=== PATIENT | male | born 1995 | race Caucasian/White ===

== ENCOUNTER 2024-08-05 14:12 | Emergency (ER) | payer BC, SELFPAY ==
[2024-08-05 14:14] VITALS: BP 123/78
[2024-08-05 14:25] LABS: Glucose - Point of Care 269 mg/dl (70-99)
[2024-08-05 15:18] VITALS: BMI 31.4
[2024-08-05 15:20] VITALS: BP 148/85
--- NOTE | 2024-08-05 15:21 | ED.GENMED ---
History of Present Illness
General
Chief Complaint: Abdominal Symptoms
Source: patient
Exam Limitations: none
Time Seen by Provider: 08/05/24 14:47
Nursing documentation reviewed up to this point in time: agreed with
History of Present Illness
History of Present Illness:
Patient is a 28-year-old male who presents to the ER for evaluation of nausea vomiting diarrhea. Patient saw the middle the night with nausea vomiting diarrhea he reports he has vomited more than 20 times and presents to the ER still vomiting
though diarrhea has resolved he denies any associate abdominal pain. He feels that he has a stomach virus. He is concerned because he is a type I diabetic and typically his sugars will elevate when he gets viral syndrome.
He denies any other sick contacts at home. Denies any recent fevers.
Review of Systems
Review of Systems
Allergies reviewed?: Yes
All Other Systems: ROS reviewed and negative except as documented in HPI and ROS
Constitutional: Reports no symptoms
Respiratory: Reports no symptoms
Cardiac: Reports no symptoms
ABD/GI: Reports nausea, vomiting and diarrhea; Denies abdominal pain
: Reports no symptoms
Musculoskeletal: Reports no symptoms
Skin: Reports no symptoms
Neurological: Reports no symptoms
Psychiatric: Reports no symptoms
Phy Exam
General Physical Exam
General Presentation: no apparent distress
Course
Orders/Labs/Results
Orders:
Orders
08/05/24 15:06
IV Insert/Care/Rem.- Treatment PRN
0.9% Sodium Chloride 1000 ml [Nss] 1,000 ml IV BOLUS
Ondansetron Injectable [Zofran] 4 mg IV NOW STA
08/05/24 15:19
Complete Blood Count/With Diff Urgent
Comprehensive Metabolic Panel Urgent
Lipase Urgent
08/05/24 15:20
Famotidine [Pepcid] 20 mg IV NOW STA
08/05/24 15:21
Ondansetron Injectable [Zofran] 4 mg IV NOW STA
08/05/24 15:22
0.9% Sodium Chloride 1000 ml [Nss] 1,000 ml IV BOLUS
08/05/24 17:12
Urinalysis Reflex To Culture Urgent
Date Specimen was Collected: 08/05/24
Time Specimen was Collected: 17:03
Abnormal Lab Results
08/05/24 08/05/24 08/05/24
14:24 15:19 16:25
WBC 14.8 H 10^3/uL
(4.8-10.8)
Abs Immat Gran (auto) 0.1 H 10^3/uL
(0-0.05)
Absolute Neuts (auto) 13.6 H 10^3/uL
(1.4-6.5)
Absolute Lymphs (auto) 0.7 L 10^3/uL
(1.2-3.4)
Neutrophils % 92.1 H %
(42.2-75.2)
Lymphocytes % 4.6 L %
(20.5-51.1)
BUN 22 H mg/dl
(9-20)
Glucose 297 H mg/dl
(70-99)
Total Protein 8.3 H g/dl
(6.3-8.2)
Albumin 5.4 H g/dl
(3.5-5.0)
Lipase 20 L U/L
(23-300)
Urine Ketones
Urine Glucose
POC Glucose 269 H mg/dl 224 H mg/dl
(70-99) (70-99)
08/05/24
17:12
WBC
Abs Immat Gran (auto)
Absolute Neuts (auto)
Absolute Lymphs (auto)
Neutrophils %
Lymphocytes %
BUN
Glucose
Total Protein
Albumin
Lipase
Urine Ketones 3+ A
(Negative)
Urine Glucose 3+ A
(Negative)
POC Glucose
08/05/24 15:19
08/05/24 15:19
Vital Signs
Initial and Last Documented VS:
Initial Vital Signs
Temp Pulse Resp BP Pulse Ox
98.2 F 78 18 123/78 97
08/05/24 14:14 08/05/24 14:14 08/05/24 14:14 08/05/24 14:14 08/05/24 14:14
Last Documented Vital Signs
Temp Pulse Resp BP Pulse Ox
98.2 F 50 18 157/88 97
08/05/24 14:14 08/05/24 17:55 08/05/24 17:55 08/05/24 17:03 08/05/24 17:55
MDM/Problems Addressed
Differential Diagnosis Includes:
Not limited to hyperglycemia viral syndrome dehydration viral gastroenteritis
MDM/Problems Addressed:
symptoms are consistent with gastroenteritis. Patient started nausea vomiting diarrhea 3 AM. He is a diabetic and therefore was concerned about his sugars being elevated. Patient reports diarrhea stopped however vomiting persisted. Patient
presents to the ER vomiting. IV line was inserted patient was given Zofran and fluids monitor here feeling much better. Patient was able to tolerate fluids here in the ER no abd pain. no fever. wbc mildly elevated. Patient's creatinine is normal
neuro sodium potassium and normal bicarb glucose was elevated however improving after fluids. Patient feels well after go home will DC with Zofran as needed
*Critical Care Note
Total Time (30-74mins, 75-104mins- exclusive of procedures): Not Applicable
ED Attending Note
-
Portions of this chart may have been created with voice recognition software.� Occasional wrong word or��sound alike� substitutions may have occurred due to the inherent limitations of voice recognition software.
Discharge Plan
Departure
Patient Disposition: Home (Routine Discharge)
Date of Disposition: 08/05/24
Time of Disposition: 17:41
Patient with high blood pressure during this ER visit?: Yes
Condition: Fair
Covid-19: Not Applicable
Discharge Problem:
Gastroenteritis
Instructions: Diarrhea in teens and adults, Nausea and Vomiting, Adult (DC)
Prescriptions:
New
ondansetron 4 mg tablet,disintegrating
4 mg PO Q8H PRN (Reason: nausea and vomiting) Qty: 7 0RF
Referrals:
NONE,* [Family Provider] -
Activity Restrictions/Additional Instructions:
As discussed a prescription for Zofran was sent to your pharmacy take as directed only as needed. Clear fluids for the next 24 hours followed by bland solid foods. Closely follow up with your family doctor in the next several days for
reevaluation. Closely monitor your sugars. Return if any worsening of symptoms
Interventions
Interventions:
*Risk Screen - Suicide Last Done: 08/05/24 14:14
*General Assessment Last Done: 08/05/24 14:14
*Neglect/Abuse Screening Last Done: 08/05/24 14:14
*Nursing Disposition Last Done: 08/05/24 18:01
ZT-Etwghu-Qbrfmhijtk Assessment Last Done: 08/05/24 15:19
Discharge Date and Time
Discharge Date/Time: 08/05/24 18:03
Print Language: PUERTO RICAN
[2024-08-05] MEDS: NSS 1000 IV ×2 (15:23→16:19)
[2024-08-05] MEDS: ZOFRAN 4 MG IV ×2 (15:24→16:22)
[2024-08-05 15:29] LABS: % Basophils 0.1 % (0-2); % Immature Granulocytes 0.3 % (0-0.5); % Lymphocytes 4.6 % (20.5-51.1); % Monocytes 2.9 % (1.7-9.3); % Neutrophils 92.1 % (42.2-75.2); Absolute Immature Granulocytes 0.1 10^3/uL (0-0.05); Absolute Lymphocytes 0.7 10^3/uL (1.2-3.4); Absolute Monocytes 0.4 10^3/uL (0.1-0.6); Absolute Neutrophils 13.6 10^3/uL (1.4-6.5); Hematocrit 46.6 % (39.0-52.0); Hemoglobin 15.6 g/dL (13.0-18.0); Mean Corp Hgb Conc. 33.5 g/dL (33.0-37.0); Mean Corpuscular Hgb 30.2 pg (27.0-31.0); Mean Corpuscular Volume 90.1 fL (80.0-94.0); Mean Platelet Volume 9.6 fL (7.4-10.4); Nucleated Red Blood Cells % 0 % (-); Platelet Count 321 10^3/uL (130-400); Red Blood Cell Count 5.17 10^6/uL (4.70-6.10); Red Cell Dist. Width 12.1 % (11.5-14.5); White Blood Cell Count 14.8 10^3/uL (4.8-10.8)
[2024-08-05 15:43] LABS: ALT (SGPT) 22 U/L (0-50); AST (SGOT) 23 U/L (17-59); Albumin 5.4 g/dl (3.5-5.0); Alkaline Phosphatase 95 U/L (38-126); Blood Urea Nitrogen 22 mg/dl (9-20); Calcium 10.2 mg/dl (8.4-10.2); Carbon Dioxide 22 mmol/L (22-30); Chloride 100 mmol/L (98-107); Estimated Creatinine Clearance > 125 ml/min; Glucose 297 mg/dl (70-99); Lipase 20 U/L (23-300); Potassium 4.5 mmol/L (3.5-5.1); Sodium 141 mmol/L (135-145); Total Protein 8.3 g/dl (6.3-8.2); eGFR > 60.00
[2024-08-05] MEDS: PEPCID 20 MG IV (15:43)
[2024-08-05 16:17] VITALS: BP 145/88
[2024-08-05 16:26] LABS: Glucose - Point of Care 224 mg/dl (70-99)
[2024-08-05 17:03] VITALS: BP 157/88
[2024-08-05 17:20] LABS: Urine Albumin Trace (Neg - Trace); Urine Bilirubin Negative (Negative); Urine Character Clear (Clear); Urine Color Yellow; Urine Glucose 3+ (Negative); Urine Ketone 3+ (Negative); Urine Leukocyte Negative (Negative); Urine Nitrite Negative (Negative); Urine Occult Blood Negative (Negative); Urine Urobilinogen Negative (Neg - 1+)
== END 2024-08-05 18:03 | disposition home or self-care (01) ==
LOC: EMR 14:12
PROVIDERS: Nurse Practitioner; EMERGENCY PHYSICIAN Emergency Medicine
DX: K52.9 Noninfective gastroenteritis and colitis, unspecified (principal); E11.9 Type 2 diabetes mellitus without complications
CPT/HCPCS: 99283; 96374; 96375; 96376; 96361; 80053; 81003; 82962; 83690; 85025

== ENCOUNTER 2024-08-07 23:44 | Observation (INO) | payer BC, SELFPAY ==
[2024-08-07 21:37] VITALS: BP 164/97
[2024-08-07 21:44] LABS: Glucose - Point of Care 104 mg/dl (70-99)
--- NOTE | 2024-08-07 22:12 | ED.GENMED ---
History of Present Illness
<Vern Rogeljie, DO - Last Filed: 08/08/24 00:05>
General
Chief Complaint: Abdominal Symptoms
Time Seen by Provider: 08/07/24 22:11
History of Present Illness
History of Present Illness:
TIME OF INITIAL ENCOUNTER: 10:20 PM
HPI: Patient presents due to nausea and vomiting associated with what he feels is severe heartburn. Came here 2 days ago with similar episode, improved when d/c'd. Today, when ate toast about 10hrs felt 'weird' then 2hrs ago recurrence of vomiting.
No diarrhea this time (had diarrhea 2d ago). He vomited shortly after he had his seizure medication this evening. He uses marijuana daily.
EXAM:
GENERAL: Well appearing but in mild distress
HEENT: Moist oral mucosa
CARDIOVASCULAR: No murmurs, normal heart rate, regular rhythm, No chest wall tenderness
PULMONARY: No respiratory distress, breath sounds are clear and equal
ABDOMEN: Soft with no peritoneal signs, no tenderness
NEUROLOGIC: Excellent strength all extremities, no coordination deficits
PSYCHIATRIC: Appropriate mental status, normal insight and judgement
EXTREMITIES: Nontender, no edema, moves all extremities equally
SKIN: No rash, no lesions
NUMBER AND COMPLEXITY OF PROBLEMS ADDRESSED AT THE ENCOUNTER
� Chronic conditions affecting care: Seizures, IDDM
� Acute Exacerbation and/or Progression of Chronic Illness: This is an acute but recurrent problem recently
� Differential Diagnosis includes: Viral syndrome, cannabinoid hyperemesis syndrome, gastroenteritis, diabetes complications
AMOUNT AND/OR COMPLEXITY OF DATA TO BE REVIEWED AND ANALYZED
� I performed an independent evaluation of and my interpretation is:
EKG: Sinus 53, left axis deviation, nonspecific ST abnormality, no old to compare
CT:
X-rays:
Laboratory Studies: White count 12.3, hemoglobin 14.8, potassium 2.9, normal bicarb
Other:
� Review of other/old records: When the patient was here 2 days ago, the white count was 14.8
� Clinical information was obtained by an independent historian: I spoke to at bedside
� Prescriptions/Medications Considered but not given:
� Further testing considered but not performed: Considered CT imaging, the patient has no significant abdominal pain and primarily presents with 'heartburn' kind of discomfort as well as nausea without any abdominal pain.
RISK OF COMPLICATIONS AND/OR MORBIDITY OR MORTALITY OF PATIENT MANAGEMENT
� Social determinants of health affecting care: Lives at home
� Discussion with other providers: Hospitalist for admission, Dr. Peña
� Escalation of care including admission/observation vs risk of discharge considered: The patient has recurrence of nausea and vomiting. He states that he uses marijuana on a daily basis. He was also concerned that he vomited
shortly after he took his nighttime seizure medications which include Keppra, Lamictal, and clobazam. Will give 1 g of Keppra as well as benzos. He was also given IV fluids and PPI/Pepcid in addition to Zofran. We did talk about the possibility
of cannabinoid hyperemesis syndrome.
ANY OTHER UPDATES:
11:30 PM: Potassium only 2.9. Replacing potassium by IV as he has had poor p.o. tolerance. Adding magnesium level. Although he is only 28 years old, I am concerned about his comorbidities of IDDM and seizure disorder not being able to take his
medications.
Phy Exam
<DEBI Langford - Last Filed: 08/07/24 23:37>
Physical Exam
Physical Exam:
see HPI
Course
<Vern Arellano DO - Last Filed: 08/08/24 00:05>
Orders/Labs/Results
Orders:
Orders
08/07/24 22:12
Complete Blood Count/With Diff Urgent
Comprehensive Metabolic Panel Urgent
Lipase Urgent
Magnesium Urgent
Comment: ADD ON
08/07/24 22:13
Famotidine [Pepcid] 20 mg IV NOW STA
Pantoprazole [Protonix IV] 40 mg IV NOW STA
08/07/24 22:23
Ondansetron Injectable [Zofran] 4 mg .ROUTE .[facility]-MED ONE
08/07/24 22:25
0.9% Sodium Chloride 1000 ml [Nss] 1,000 ml IV BOLUS
Ondansetron Injectable [Zofran] 4 mg IV NOW STA
08/07/24 22:43
Levetiracetam Injectable [Keppra] 1,000 mg IV NOW STA
08/07/24 22:44
Lorazepam [Ativan] 1 mg IV NOW STA
08/07/24 23:18
Add On- LAB Urgent
Tests Added?: magnesium
08/07/24 23:19
Electrocardiogram (*1) Urgent
Reason for Study: Other
Other Reason for Exam: hypokalemia
08/07/24 23:25
Potassium Chloride [KCl] 40 meq 0.9% Sodium Chloride 250 ml [Nss] 250 ml IV NOW
08/07/24 23:33
Admit/Transfer Patient As Directed
Co-Sign Provider:
Level of Care: Observation services
Assign to:: Telemetry
Physician / Group: hospitalist
Diagnosis: hypokalemia
Reason for Telemetry: Other
Other Reason for Telemetry: hypokalemia
Date to Stop Telemetry: 08/09/24
Time to Stop Telemetry: 11:00
08/07/24 23:34
Code Status As Directed
Resuscitation Status: Full Code
08/07/24 23:51
Acetaminophen [Tylenol] 650 mg PO Q4HPRN PRN
Capsaicin [Zostrix-Hp 0.075% Cream] See Dose Instructions TOPICAL QID PRN
HYDROmorphone [Dilaudid] 0.5 mg IV Q4HPRN PRN
Lactated Ringers [Lr] 1,000 ml IV 150 mls/hr
Ondansetron Injectable [Zofran] 4 mg IV Q6HPRN PRN
08/07/24 23:51
Activity As Directed
Activity Level: As Tolerated
Vital Signs As Directed
Frequency: Per unit guidelines
DX Deep Vein Thrombosis Video Routine
08/08/24 06:00
Basic Metabolic Panel IN AM
Magnesium IN AM
08/08/24 08:00
Famotidine [Pepcid] 20 mg IV Q12
08/08/24 18:00
Enoxaparin Sodium [Lovenox] 40 mg SC QPM
08/09/24 11:00
DC Protocol for Telemetry ONCE
Abnormal Lab Results
08/07/24 08/07/24
21:42 22:12
WBC 12.3 H 10^3/uL
(4.8-10.8)
Absolute Neuts (auto) 8.1 H 10^3/uL
(1.4-6.5)
Absolute Monos (auto) 1.4 H 10^3/uL
(0.1-0.6)
Monocytes % 11.1 H %
(1.7-9.3)
Potassium 2.9 L D mmol/L
(3.5-5.1)
Glucose 134 H mg/dl
(70-99)
POC Glucose 104 H mg/dl
(70-99)
08/07/24 22:12
08/07/24 22:12
Vital Signs
Initial and Last Documented VS:
Initial Vital Signs
Temp Pulse BP Pulse Ox
36.8 C 62 164/97 99
08/07/24 21:37 08/07/24 21:37 08/07/24 21:37 08/07/24 21:37
Last Documented Vital Signs
Temp Pulse Resp BP Pulse Ox
36.8 C 57 18 144/90 87
08/07/24 21:37 08/07/24 23:15 08/07/24 23:15 08/07/24 23:00 08/07/24 23:15
<Agnieszka Jeffries, [facility] - Last Filed: 08/07/24 23:37>
Orders/Labs/Results
Orders:
Orders
08/07/24 22:12
Complete Blood Count/With Diff Urgent
Comprehensive Metabolic Panel Urgent
Lipase Urgent
Magnesium Urgent
Comment: ADD ON
08/07/24 22:13
Famotidine [Pepcid] 20 mg IV NOW STA
Pantoprazole [Protonix IV] 40 mg IV NOW STA
08/07/24 22:23
Ondansetron Injectable [Zofran] 4 mg .ROUTE .[facility]-MED ONE
08/07/24 22:25
0.9% Sodium Chloride 1000 ml [Nss] 1,000 ml IV BOLUS
Ondansetron Injectable [Zofran] 4 mg IV NOW STA
08/07/24 22:43
Levetiracetam Injectable [Keppra] 1,000 mg IV NOW STA
08/07/24 22:44
Lorazepam [Ativan] 1 mg IV NOW STA
08/07/24 23:18
Add On- LAB Urgent
Tests Added?: magnesium
08/07/24 23:19
Electrocardiogram (*1) Urgent
Reason for Study: Other
Other Reason for Exam: hypokalemia
08/07/24 23:25
Potassium Chloride [KCl] 40 meq 0.9% Sodium Chloride 250 ml [Nss] 250 ml IV NOW
08/07/24 23:33
Admit/Transfer Patient As Directed
Co-Sign Provider:
Level of Care: Observation services
Assign to:: Telemetry
Physician / Group: hospitalist
Diagnosis: hypokalemia
Reason for Telemetry: Other
Other Reason for Telemetry: hypokalemia
Date to Stop Telemetry: 08/09/24
Time to Stop Telemetry: 11:00
08/07/24 23:34
Code Status As Directed
Resuscitation Status: Full Code
08/07/24 23:51
Acetaminophen [Tylenol] 650 mg PO Q4HPRN PRN
Capsaicin [Zostrix-Hp 0.075% Cream] See Dose Instructions TOPICAL QID PRN
HYDROmorphone [Dilaudid] 0.5 mg IV Q4HPRN PRN
Lactated Ringers [Lr] 1,000 ml IV 150 mls/hr
Ondansetron Injectable [Zofran] 4 mg IV Q6HPRN PRN
08/07/24 23:51
Activity As Directed
Activity Level: As Tolerated
Vital Signs As Directed
Frequency: Per unit guidelines
DX Deep Vein Thrombosis Video Routine
08/08/24 06:00
Basic Metabolic Panel IN AM
Magnesium IN AM
08/08/24 08:00
Famotidine [Pepcid] 20 mg IV Q12
08/08/24 18:00
Enoxaparin Sodium [Lovenox] 40 mg SC QPM
08/09/24 11:00
DC Protocol for Telemetry ONCE
Abnormal Lab Results
08/07/24 08/07/24
21:42 22:12
WBC 12.3 H 10^3/uL
(4.8-10.8)
Absolute Neuts (auto) 8.1 H 10^3/uL
(1.4-6.5)
Absolute Monos (auto) 1.4 H 10^3/uL
(0.1-0.6)
Monocytes % 11.1 H %
(1.7-9.3)
Potassium 2.9 L D mmol/L
(3.5-5.1)
Glucose 134 H mg/dl
(70-99)
POC Glucose 104 H mg/dl
(70-99)
08/07/24 22:12
08/07/24 22:12
Vital Signs
Initial and Last Documented VS:
Initial Vital Signs
Temp Pulse BP Pulse Ox
36.8 C 62 164/97 99
08/07/24 21:37 08/07/24 21:37 08/07/24 21:37 08/07/24 21:37
Last Documented Vital Signs
Temp Pulse Resp BP Pulse Ox
36.8 C 57 18 144/90 87
08/07/24 21:37 08/07/24 23:15 08/07/24 23:15 08/07/24 23:00 08/07/24 23:15
<DEBI Langford - Last Filed: 08/07/24 23:37>
*Critical Care Note
Total Time (30-74mins, 75-104mins- exclusive of procedures): Not Applicable
ED Attending Note
<Vern Arellano DO - Last Filed: 08/08/24 00:05>
-
Portions of this chart may have been created with voice recognition software.� Occasional wrong word or��sound alike� substitutions may have occurred due to the inherent limitations of voice recognition software.
Discharge Plan
Departure
Patient Disposition: Admit
Date of Disposition: 08/07/24
Time of Disposition: 23:27
Presentation/result/management discussed w/ accepting MD/DO: Hospitalist
Discharge Problem:
Acute hypokalemia
Interventions
Interventions:
*Risk Screen - Suicide Last Done: 08/07/24 21:38
*General Assessment Last Done: 08/07/24 21:38
*Neglect/Abuse Screening Last Done: 08/07/24 21:38
ED- Fall Risk Assessment Last Done: 08/07/24 22:57
*ED COVID-19 Vaccine History Last Done: 08/07/24 22:57
ZW-Cixwbu-Rxtciwjnuz Assessment Last Done: 08/07/24 22:57
[2024-08-07 22:17] VITALS: BP 150/85
[2024-08-07 22:25] LABS: % Basophils 0.3 % (0-2); % Eosinophils 0.3 % (0-6); % Immature Granulocytes 0.2 % (0-0.5); % Lymphocytes 21.6 % (20.5-51.1); % Monocytes 11.1 % (1.7-9.3); % Neutrophils 66.5 % (42.2-75.2); Absolute Lymphocytes 2.7 10^3/uL (1.2-3.4); Absolute Monocytes 1.4 10^3/uL (0.1-0.6); Absolute Neutrophils 8.1 10^3/uL (1.4-6.5); Hematocrit 43.1 % (39.0-52.0); Hemoglobin 14.8 g/dL (13.0-18.0); Mean Corp Hgb Conc. 34.3 g/dL (33.0-37.0); Mean Corpuscular Hgb 30.5 pg (27.0-31.0); Mean Corpuscular Volume 88.9 fL (80.0-94.0); Mean Platelet Volume 9.5 fL (7.4-10.4); Nucleated Red Blood Cells % 0 % (-); Platelet Count 319 10^3/uL (130-400); Red Blood Cell Count 4.85 10^6/uL (4.70-6.10); Red Cell Dist. Width 12.2 % (11.5-14.5); White Blood Cell Count 12.3 10^3/uL (4.8-10.8)
[2024-08-07] MEDS: ZOFRAN 4 MG IV (22:25)
[2024-08-07] MEDS: PEPCID 20 MG IV (22:34)
[2024-08-07] MEDS: NSS 1000 IV (22:34)
[2024-08-07] MEDS: PROTONIX IV 40 MG IV (22:35)
[2024-08-07] MEDS: ATIVAN 1 MG IV (22:52)
[2024-08-07 22:53] LABS: ALT (SGPT) 16 U/L (0-50); AST (SGOT) 17 U/L (17-59); Albumin 4.6 g/dl (3.5-5.0); Alkaline Phosphatase 85 U/L (38-126); Blood Urea Nitrogen 15 mg/dl (9-20); Calcium 9.9 mg/dl (8.4-10.2); Carbon Dioxide 28 mmol/L (22-30); Chloride 98 mmol/L (98-107); Glucose 134 mg/dl (70-99); Lipase 52 U/L (23-300); Potassium 2.9 mmol/L (3.5-5.1); Sodium 140 mmol/L (135-145); Total Bilirubin 0.9 mg/dl (0.2-1.3); Total Protein 6.9 g/dl (6.3-8.2); eGFR > 60.00
[2024-08-07] MEDS: KEPPRA 1000 MG IV (22:53)
[2024-08-07 22:57] VITALS: BMI 31.1
[2024-08-07 23:00] VITALS: BP 144/90
[2024-08-07] MEDS: KCL 270 MEQ IV (23:46)
--- NOTE | 2024-08-07 23:52 | HPS.HSE ---
Family Physician
-
Family Physician: * NONE
Chief Complaint
-
Intractable nausea vomiting on antiepileptic drugs
History of Present Illness
Disease 28-year-old with past medical history of type 1 diabetes on insulin pump, seizure disorder since teenager on multiple antiepileptic drugs presents to the emergency department with recurrence of nausea vomiting started again a few hours prior
to coming to the ED.
Patient reported that proximately 6 days ago he was in the emergency department for persistent nausea and vomiting. He was nonbloody and nonbilious. He reported a burning sensation and heartburn type symptoms. Patient denies any alcohol use. He
denies tobacco smoking. He does use marijuana but denies prior episodes of abdominal pain and nausea vomiting. Patient denies any prior surgeries. Was evaluated in the ED given IV fluids and antiemetics and was discharged from the ED. He felt
well and was tolerating some amount of food and his usual medications up until today. He reports some abdominal discomfort and pain recurrent nausea and vomiting. Again was nonbloody and nonbilious. He said no fevers or chills. He denies urinary
symptoms. He has no history of kidney stones gallbladder disease or pancreatitis.
In the emergency department he was afebrile, blood pressure was stable, he was bradycardic to about 55. CBC shows a white count of 12.3 but otherwise unremarkable. Chemistries notable for a potassium of 2.9. Glucose was 104. Bicarb was 28. No
anion gap.
Medical History
Past Medical History
Past Medical History: Reports IDDM and Seizures
Past Surgical History: Reports None
Social History
Tobacco: Non-smoker
Alcohol: Occasional
Drug: Marijuana
Personal:
Living: With Family
Employment: Employed
Family History
Family History: Not pertinent
Allergies / Home Medications
Allergies reflects when Allergies were last updated in [employer].
Home Medications with original date entered in [employer]
Allergy/Medication List:
Allergies
Allergy/AdvReac Type Severity Reaction Status Date / Time
No Known Allergies Allergy Verified 08/05/24 15:19
Home Medications
clobazam 20 mg tablet 20 mg PO HS 08/07/24
diazepam 20 mg/2 spray (10 mg/0.1 mL x 2) nasal spray (Valtoco) 20 mg intranasal ONCE PRN seizure lasting up to 5 mins 08/07/24
insulin lispro 100 unit/mL subcutaneous solution (Humalog U-100 Insulin) 0 sliding scale dose SC .VIA PUMP 08/07/24
lamotrigine 300 mg tablet,extended release 24 hr 300 mg PO BID 08/07/24
levetiracetam 1,000 mg tablet 2,000 mg PO Q12 08/07/24
ondansetron 4 mg disintegrating tablet 4 mg PO Q8HPRN PRN nausea and vomiting 08/07/24
Review of Systems
-
History Source: Patient
Constitutional: Reports No Symptoms
EENT: Reports No Symptoms
Respiratory: Reports No Symptoms
Cardiac: Reports No Symptoms
Abdomen/GI: Reports Nausea and Vomiting
: Reports No Symptoms
Musculoskeletal: Reports No Symptoms
Skin: Reports No Symptoms
Neurological: Reports No Symptoms
Endocrine: Reports No Symptoms
Hematologic/Lymphatic: Reports No Symptoms
Psych: Reports No Symptoms
Physical Exam
Vital Signs
Vital Signs
Temp Pulse Resp BP Pulse Ox
98.3 F 57 18 144/90 87
08/07/24 21:37 08/07/24 23:15 08/07/24 23:15 08/07/24 23:00 08/07/24 23:15
Physical Exam
General: Well Developed, Well Nourished, No Apparent Distress and Comfortable
HEENT: NormoCephalic, Anicteric, Moist mucous membranes and Atraumatic
Respiratory: Clear
Cardiac: S1/S2 and Bradycardia
GI: Soft, Non Tender, Non Distended, Normal Bowel Sounds, Flat and No Hepatosplenomegaly
Rectal: Deferred by Provider
Genito-urinary: Deferred by me
Musculoskeletal: No Clubbing, No Cyanosis and No Edema
Skin: Warm
Neuro: AO x 3
Hematologic/Lymphatic: No Lymphadenopathy
Psych: Calm
Laboratory Results
-
08/07/24 22:12
08/07/24 22:12
Laboratory Results
Total Bilirubin 0.9 mg/dl (0.2-1.3) 08/07/24 22:12
AST 17 U/L (17-59) 08/07/24 22:12
ALT 16 U/L (0-50) 08/07/24 22:12
Alkaline Phosphatase 85 U/L (38-126) 08/07/24 22:12
Lipase 52 U/L (23-300) 08/07/24 22:12
Data Reviewed
-
Medical Tests (Nuc Med, Echo, EKG etc): Image Personally Visualized and interpreted
Lab Data: Labs Reviewed by me
Old Records: Reviewed
Impression/Plan
-
IMPRESSION:
28-year-old type 1 diabetes with intractable nausea vomiting. Is on insulin drip, he has normal glucose, normal bicarb and no gap, no DKA. His LFTs and lipase are within normal limits. Abdominal exam was benign. He has no urinary symptoms.
Suspect acute gastritis or recurrent gastritis. No known history of peptic ulcer disease and denies any melena or hematochezia or hematemesis. Chronic marijuana use but denies prior history of intractable nausea and vomiting. He vomited is most
recent doses of his antiepileptic drugs. He was giving IV Ativan and IV Keppra in the ED. Potassium was 2.9 patient has sinus rhythm cardia without any obvious morphological changes on telemetry.
PLAN:
1. Intractable N/V - gastritis ? PUD.
- admit to tele/obs
- npo except sips, icechips and meds
- pain control
- famotidine iv q 12 for now,
- ppi iv daily,
- antiemetics
- capsaicin prn
2. Seizures - No recent seizures on current medications
- keppra iv q 12 for now
- start oral lamotrigine 300mg po bid tomorrow
- clobazam 20mg hs
3. IDDM
- continue home insulin pump
- accuchecks q 6, d/c insulin pump if hypoglycemic or uncontrolled sugars
4. Hypokalemia - likely from vomiting
- telemetry
- 40meq iv k tonight, labs in am.
DVT PPX - lovenox sq
Code status - full code
[2024-08-08] VITALS: BP 154/88
[2024-08-08 00:01] LABS: Magnesium 1.7 mg/dl (1.6-2.3)
[2024-08-08 00:30] VITALS: BP 164/87; BMI 30.4
[2024-08-08] MEDS: LR 1000 IV ×2 (00:50→08:43)
[2024-08-08 04:22] VITALS: BP 112/75
--- NOTE | 2024-08-08 05:51 | DOWNTIME ---
There was a [employer] Downtime on 08/08/2024 from 0100 to 08/08/2024 at 0350. Downtime documentation of patient's care, including medication administrations, has been reconciled in the electronic record per guidelines. Refer to the
patient's paper chart under the miscellaneous tab to see printed paper medication records and downtime forms.
[2024-08-08 06:08] LABS: Glucose - Point of Care 128 mg/dl (70-99)
[2024-08-08 07:30] VITALS: BP 118/59
[2024-08-08 07:51] LABS: Blood Urea Nitrogen 14 mg/dl (9-20); Carbon Dioxide 28 mmol/L (22-30); Chloride 100 mmol/L (98-107); Estimated Creatinine Clearance > 125 ml/min; Glucose 141 mg/dl (70-99); Magnesium 1.7 mg/dl (1.6-2.3); Sodium 140 mmol/L (135-145); eGFR > 60.00
[2024-08-08] MEDS: NSS (PRESERVATIVE FREE) 8 ML IV (08:42)
[2024-08-08] MEDS: PROTONIX IV 40 MG IV (08:43)
[2024-08-08] MEDS: PEPCID 20 MG IV (08:44)
[2024-08-08] MEDS: NSS (PRESERVATIVE FREE) 10 ML IV (08:44)
[2024-08-08] MEDS: LAMICTAL 300 MG PO (08:44)
[2024-08-08] MEDS: KEPPRA 2000 MG IV (08:56)
--- NOTE | 2024-08-08 10:06 | W.PN.HOSP.TC ---
Today's Communication/Plan
-
Clear liquid diet
Advance as tolerated
Assessment / Plan
Assessment / Plan
Gen-AAOx3, NAD
HEENT-NC, AT, anicteric, clear oral mm
Neck-supple
CV-reg, no M, +S1/S2
Lungs-clear B/L
Abd-soft, NT, ND
Ext-no edema
Musculoskeletal-no cyanosis, clubbing
Skin-warm and dry
Neuro-grossly non-focal
Psych-calm, cooperative
Acute gastroenteritis -differential diagnosis includes viral such as norovirus versus other. Continue supportive care. Symptoms improving. Start clear liquids, advance as tolerated. If improved, possible discharge later today. If nausea and
vomiting persist in the future would consider marijuana induced cyclical vomiting although I do not believe that is the cause currently. Discussed with patient.
DM1 without hyperglycemia -continue insulin pump. He has a continuous glucose monitor.
Epilepsy -stable. Continue meds.
Obesity due to excess calories
full code
Dispo -possible discharge later today if medically stable and tolerating solids. Outpatient follow-up.
Updated at the bedside.
Anticipated Discharge: Today
Subjective/Interval History
-
Date of Service: August 08, 2024
Patient seen and examined. Feeling much better. Denies further diarrhea or nausea. Feels hungry.
Objective Data
-
Labs:
Laboratory Results
08/07/24 08/08/24
22:12 06:51
WBC 12.3 H
Hgb 14.8
Hct 43.1
Plt Count 319
Sodium 140 140
Potassium 2.9 L D 4.0 D
Chloride 98 100
Carbon Dioxide 28 28
BUN 15 14
Creatinine 0.8 0.7
Glucose 134 H 141 H
Calcium 9.9 9.0
Total Bilirubin 0.9
AST 17
ALT 16
Alkaline Phosphatase 85
Vital Signs:
Vital Signs
Temp Pulse Resp BP Pulse Ox
98.9 F 68 16 118/59 96
08/08/24 07:30 08/08/24 07:30 08/08/24 07:30 08/08/24 07:30 08/08/24 07:30
I&O
08/07/24 08/08/24 08/09/24
06:59 06:59 06:59
Intake Total 120 / 120
Balance 120 / 120
Review of Systems
-
History Source: Patient
All other systems: Reviewed and negative
[2024-08-08 11:00] VITALS: BP 155/78
[2024-08-08 12:15] LABS: Glucose - Point of Care 142 mg/dl (70-99)
--- NOTE | 2024-08-08 12:58 | W.DS.TRANS ---
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
-
Discharge Instructions:
Discharge Diagnosis/Procedures Acute gastroenteritis
Diet Diabetic, Carb Controlled
Activity As tolerated
Driving Restrictions As prior to admission
Bathing Restrictions None
Instructions:
Stand-Alone Forms:
Changes to Home Medications: No
Discharge Medications:
DC Medications w/original date entered in [facility]
clobazam 20 mg tablet 20 mg PO HS Neurological Condition 08/07/24
diazepam 20 mg/2 spray (10 mg/0.1 mL x 2) nasal spray (Valtoco) 20 mg intranasal ONCE PRN seizure lasting up to 5 mins 08/07/24
insulin lispro 100 unit/mL subcutaneous solution (Humalog U-100 Insulin) 0 sliding scale dose SC .VIA PUMP Diabetes 08/07/24
lamotrigine 300 mg tablet,extended release 24 hr 300 mg PO BID Neurological Condition 08/07/24
levetiracetam 1,000 mg tablet 2,000 mg PO Q12 Neurological Condition 08/07/24
ondansetron 4 mg disintegrating tablet 4 mg PO Q8HPRN PRN nausea and vomiting 08/07/24
Home Medication Changes
Pending Results: No
== END 2024-08-08 14:08 | disposition home or self-care (01) ==
LOC: 3 WEST ACU 23:44
PROVIDERS: Student in an Organized Health Care Education/Training Program; ADMITTING PHYSICIAN Internal Medicine; ATTENDING PHYSICIAN Hospitalist; EMERGENCY PHYSICIAN Emergency Medicine
DX: R11.2 Nausea with vomiting, unspecified (principal); F12.90 Cannabis use, unspecified, uncomplicated; R10.9 Unspecified abdominal pain; R12 Heartburn; R19.7 Diarrhea, unspecified; E10.9 Type 1 diabetes mellitus without complications; G40.909 Epilepsy, unspecified, not intractable, without status epilepticus; E87.6 Hypokalemia; Z79.4 Long term (current) use of insulin; Z96.41 Presence of insulin pump (external) (internal); R00.1 Bradycardia, unspecified; I49.8 Other specified cardiac arrhythmias; E66.09 Other obesity due to excess calories; Z68.30 Body mass index [BMI] 30.0-30.9, adult
CPT/HCPCS: 80048; 80053; 82962; 83690; 83735; 85025; 93005; 96374; 96375; 99285; G0378

== ENCOUNTER 2024-12-06 12:02 | Inpatient (IN) | payer BC, SELFPAY ==
[2024-12-05] VITALS (15 sets, daily range): BP systolic 116–177; BP diastolic 66–109; BMI 30.1
--- NOTE | 2024-12-05 04:41 | ED.GENMED ---
History of Present Illness
General
Chief Complaint: Abdominal Symptoms
Source: patient and spouse
Exam Limitations: none
Time Seen by Provider: 12/05/24 04:10
Nursing documentation reviewed up to this point in time: agreed with
History of Present Illness
History of Present Illness:
29-year-old male presents to the emergency department with vomiting for the last several hours. Patient concerned is because he is epileptic and he did not want to vomit up his Keppra. He was able to take his Keppra prior to his vomiting episode.
Patient is insulin-dependent and has an insulin pump. States that his blood sugars have been in the 160s. Denies fever, chills, nausea or vomiting. States that his had identical symptoms 2 days ago.
Review of Systems
Review of Systems
Allergies reviewed?: Yes
All Other Systems: ROS reviewed and negative except as documented in HPI and ROS
Constitutional: Reports no symptoms
EENT: Reports no symptoms
Respiratory: Reports no symptoms
Cardiac: Reports no symptoms
ABD/GI: Reports nausea and vomiting
: Reports no symptoms
Musculoskeletal: Reports no symptoms
Skin: Reports no symptoms
Neurological: Reports no symptoms
Endocrine: Reports no symptoms
Hematologic/Lymphatic: Reports no symptoms
Psychiatric: Reports no symptoms
Phy Exam
General Physical Exam
General Presentation: moderate distress
General Skin: warm and dry
General Habitus: normal
General Mental: alert
General Hydration: appears well hydrated
ENT Exam
ENT Exam: EOMI, pharynx normal, neck supple and normocephalic
Eye Exam
Eye Exam: PERRL, cornea clear and conjunctiva normal
Cardiovascular Exam
Cardiovascular Exam: regular rate/rhythm, no edema, no murmur and normal peripheral pulses
Pulmonary Exam
Pulmonary Exam: lungs clear, no respiratory distress, no rales, no crackles, no rhonchi, no stridor, no wheezing and no cough
Gastrointestinal Exam
Gastrointestinal Exam: normal bowel sounds, non tender, soft, no organomegaly, no pulsatile mass and non distended
Neurological Exam
Neurological Exam: alert, oriented x3, no motor deficits and speech normal
Musculoskeletal Exam
Musculoskeletal Exam: full ROM and no edema
Skin Exam
Skin Exam: normal color, warm/dry, no rash and no petechia
Psychiatric Exam
Psychiatric Exam: normal mood/affect
Course
Orders/Labs/Results
Orders:
Orders
12/05/24 04:32
Ondansetron Injectable [Zofran] 4 mg IV NOW STA
12/05/24 04:35
B-Hydroxybutyrate Urgent
Complete Blood Count/With Diff Urgent
Comprehensive Metabolic Panel Urgent
Glycohemoglobin (HgbA1c) Urgent
Lipase Urgent
PTT Urgent
Prothrombin Time Urgent
12/05/24 04:46
0.9% Sodium Chloride 1000 ml [Nss] 1,000 ml IV BOLUS
12/05/24 06:29
Levetiracetam Injectable [Keppra] 2,000 mg IV NOW STA
12/05/24 07:07
Ondansetron Injectable [Zofran] 4 mg .ROUTE .STK-MED ONE
12/05/24 07:10
Ondansetron Injectable [Zofran] 4 mg IV NOW STA
12/05/24 07:40
Prochlorperazine [Compazine] 10 mg IV NOW STA
12/05/24 09:10
Fentanyl, Urine Urgent
Urinalysis Reflex To Culture Urgent
Date Specimen was Collected: 12/05/24
Time Specimen was Collected: 09:06
Urine Drug Abuse Screen Urgent
Date Specimen was Collected: 12/05/24
Time Specimen was Collected: 09:06
Urine Microscopic Reflex Cult Urgent
12/05/24 09:20
Admit/Transfer Patient As Directed
Co-Sign Provider:
Level of Care: Observation services
Assign to:: Telemetry
Physician / Group: Dr Arguello
Diagnosis: Gastroenteritis
Reason for Telemetry: Arrhythmia
Date to Stop Telemetry: 12/08/24
Time to Stop Telemetry: 11:00
12/05/24 09:21
PRN Pain Medication Management As Directed
May give lesser potent ordered pain med per pt: Yes
preference::
Protocol:: Medication orders for pain may be administered in a
manner that supports deferring to patient preference
when the pt is:
- Requesting an ordered lesser potent pain medication.
Least to most potent pain medications are defined
as: acetaminophen < NSAID < tramadol < opioids
(morphine, oxycodone, hydromorphone).
- Requesting a lesser dose of the same medication IF
ORDERED.
- Requesting a less intrusive route of administration
if both routes are prescribed by the provider (PO <
IV).
12/05/24 09:22
Code Status As Directed
Resuscitation Status: Full Code
12/05/24 09:24
Lorazepam [Ativan] 1 mg IV Q4HPRN PRN
Precautions As Directed
Type of Precautions: Seizure
12/05/24 09:25
Norovirus by PCR Routine
FELIPE Source: Feces/Stool
Specimen Description:
12/05/24 09:26
Ondansetron Injectable [Zofran] 4 mg IV Q6HPRN PRN
12/05/24 09:30
0.9% Sodium Chloride 1000 ml [Nss] 1,000 ml IV 125 mls/hr
12/05/24 09:31
0.9% Sodium Chloride [Nss (Preservative Free)] 0.5 ml IV Q4HPRN PRN
12/05/24 09:32
Diabetes Education Consult Routine
Reason for Consult: Insulin Instruction
Newly Diagnosed?: No
12/05/24 09:34
Diabetes Management by Nurse Practitioner Routine
Consulting Provider: Soraya Carrington
Was provider already notified?: Yes
Reason for Consult: Insulin Management
Bedside Glucose Monitoring As Directed
Frequency: Q6H
Additional Instructions:: Change to q6h if pt on TPN, tube feeding or not eating
12/05/24 10:00
0.9% Sodium Chloride [Nss (Preservative Free)] 10 ml IV DAILY
Flush (0.9% Sodium Chloride) [Flush (Nss)] See Dose Instructions IV PER PROTOCOL
Pantoprazole [Protonix IV] 40 mg IV DAILY
12/05/24 10:01
Insulin Pump [Patient's Own Insulin Pump] See Dose Instructions SC PRN PRN
12/05/24 10:16
BMP [Basic Metabolic Panel] Stat
12/05/24 10:45
Add On- LAB Urgent
Tests Added?: urine drug screen
12/05/24 11:30
Insulin Pump [Patient's Own Insulin Pump] See Dose Instructions SC ACHS
12/05/24 12:47
Add On- LAB Urgent
Tests Added?: hemoglobin a1c
12/05/24 13:01
Bisacodyl [Dulcolax] 10 mg RECTAL [id number] PRN
Docusate W/Senna [Senokot-S] 1 tablet PO BIDPRN PRN
Polyethylene Glycol Powder [Miralax] 17 grams PO DAILYPRN PRN
12/05/24 13:01
Activity As Directed
Activity Level: Out of Bed-Early Mobility
Vital Signs As Directed
Frequency: Per unit guidelines
DX Deep Vein Thrombosis Video Routine
12/05/24 16:22
0.9% Sodium Chloride [Nss (Preservative Free)] 1 ml IV Q4HPRN PRN
Lorazepam [Ativan] 2 mg IV Q4HPRN PRN
12/05/24 18:00
Enoxaparin Sodium [Lovenox] 40 mg SC QPM
12/05/24 19:08
Prochlorperazine [Compazine] 5 mg IV NOW STA
12/05/24 19:09
Calcium 200mg(Ca. Carb. 500mg) [Tums Chewable Tablet] 200 mg PO NOW STA
12/05/24 19:20
Pneumatic Compression Sleeves As Directed
Type: Knee high
DX Deep Vein Thrombosis Video Routine
12/05/24 19:52
Valtoco See Dose Instructions NASAL DAILYPRN PRN
12/05/24 20:00
Levetiracetam Injectable [Keppra] 2,000 mg IV Q12
lamotrigine See Dose Instructions PO BID
12/05/24 22:00
Clobazam (Non-Form) [Onfi] 20 mg PO HS
12/05/24 23:56
Prochlorperazine [Compazine] 5 mg IV NOW STA
12/06/24 06:00
Insulin Pump [Patient's Own Insulin Pump] See Dose Instructions SC Q6
12/06/24 07:18
Basic Metabolic Panel IN AM
Complete Blood Count/No Diff IN AM
12/08/24 11:00
DC Protocol for Telemetry ONCE
Abnormal Lab Results
12/05/24 12/05/24 12/05/24
04:35 09:10 10:16
WBC 12.7 H 10^3/uL
(4.8-10.8)
RBC
Abs Immat Gran (auto) 0.1 H 10^3/uL
(0-0.05)
Absolute Neuts (auto) 9.3 H 10^3/uL
(1.4-6.5)
Absolute Monos (auto) 0.8 H 10^3/uL
(0.1-0.6)
Lymphocytes % 18.2 L %
(20.5-51.1)
Glucose 257 H mg/dl 256 H mg/dl
() ()
Hemoglobin A1c 7.3 H %
(4.0-5.6)
Urine Ketones 3+ A
(Negative)
Urine Glucose 4+ A
(Negative)
Urine Albumin (Reflex) 1+ A
(Neg - Trace)
U Benzodiazepines Scrn Positive H
(Negative)
U Marijuana (THC) Screen Positive H
(Negative)
B-Hydroxybutyrate 0.71 H mmol/L
(0.02-0.27)
POC Glucose
12/05/24 12/05/24 12/06/24
12:44 21:36 05:16
WBC
RBC
Abs Immat Gran (auto)
Absolute Neuts (auto)
Absolute Monos (auto)
Lymphocytes %
Glucose
Hemoglobin A1c
Urine Ketones
Urine Glucose
Urine Albumin (Reflex)
U Benzodiazepines Scrn
U Marijuana (THC) Screen
B-Hydroxybutyrate
POC Glucose 214 H mg/dl 222 H mg/dl 190 H mg/dl
() () ()
12/06/24 12/06/24
07:18 11:58
WBC
RBC 4.69 L 10^6/uL
(4.70-6.10)
Abs Immat Gran (auto)
Absolute Neuts (auto)
Absolute Monos (auto)
Lymphocytes %
Glucose 239 H mg/dl
()
Hemoglobin A1c
Urine Ketones
Urine Glucose
Urine Albumin (Reflex)
U Benzodiazepines Scrn
U Marijuana (THC) Screen
B-Hydroxybutyrate
POC Glucose 115 H mg/dl
(70-99)
12/06/24 07:18
12/06/24 07:18
Vital Signs
Initial and Last Documented VS:
Initial Vital Signs
Temp Pulse Resp BP Pulse Ox
98.0 F 59 16 157/98 96
12/05/24 03:47 12/05/24 03:47 12/05/24 03:47 12/05/24 03:47 12/05/24 03:47
Last Documented Vital Signs
Temp Pulse Resp BP Pulse Ox
97.6 F 51 18 166/95 99
12/06/24 20:20 12/06/24 20:20 12/06/24 20:20 12/06/24 20:20 12/06/24 20:20
*Critical Care Note
Total Time (30-74mins, 75-104mins- exclusive of procedures): Not Applicable
Update Note
Update Note:
Anion gap is 13. Beta hydroxybutyrate is elevated
Patient wishes to be discharged home. I asked him to attempt to take p.o. medications. Patient stated that he would try
Patient was unable to keep his p.o. medications down. I do not feel comfortable discharging him at this time. Patient to be admitted for intractable nausea and vomiting,
Patient to get IV Keppra.
Discussed this admission with the patient and . They are in agreement for admission.
ED Attending Note
-
Portions of this chart may have been created with voice recognition software.� Occasional wrong word or��sound alike� substitutions may have occurred due to the inherent limitations of voice recognition software.
Discharge Plan
Departure
Patient Disposition: Admit
Date of Disposition: 12/05/24
Time of Disposition: 06:48
Presentation/result/management discussed w/ accepting MD/DO: Hospitalist
Discharge Problem:
Intractable vomiting with nausea, Acute hyperglycemia, Elevated anion gap, Elevated beta-hydroxybutyrate
Interventions
Interventions:
*Risk Screen - Suicide Last Done: 12/05/24 03:47
*General Assessment Last Done: 12/05/24 04:52
*Neglect/Abuse Screening Last Done: 12/05/24 03:47
*ED- Fall Risk Assessment Last Done: 12/05/24 03:47
*ED COVID-19 Vaccine History Last Done: 12/05/24 03:47
*Nursing Disposition Last Done: 12/05/24 18:03
GC-Eexwrh-Axsjbkryva Assessment Last Done: 12/05/24 07:20
Discharge Date and Time
Discharge Date/Time: 12/05/24 18:04
[2024-12-05] MEDS: ZOFRAN 4 MG IV ×4 (04:46→21:43)
[2024-12-05] MEDS: NSS 1000 IV ×3 (04:50→17:37)
[2024-12-05 04:53] LABS: % Basophils 0.5 % (0-2); % Eosinophils 1.1 % (0-6); % Immature Granulocytes 0.4 % (0-0.5); % Lymphocytes 18.2 % (20.5-51.1); % Monocytes 6.2 % (1.7-9.3); % Neutrophils 73.6 % (42.2-75.2); Absolute Basophils 0.1 10^3/uL (0-0.2); Absolute Eosinophils 0.1 10^3/uL (0-0.7); Absolute Immature Granulocytes 0.1 10^3/uL (0-0.05); Absolute Lymphocytes 2.3 10^3/uL (1.2-3.4); Absolute Monocytes 0.8 10^3/uL (0.1-0.6); Absolute Neutrophils 9.3 10^3/uL (1.4-6.5); Hematocrit 46.4 % (39.0-52.0); Hemoglobin 15.8 g/dL (13.0-18.0); Mean Corp Hgb Conc. 34.1 g/dL (33.0-37.0); Mean Corpuscular Hgb 30.4 pg (27.0-31.0); Mean Corpuscular Volume 89.2 fL (80.0-94.0); Mean Platelet Volume 9.3 fL (7.4-10.4); Nucleated Red Blood Cells % 0 % (-); Platelet Count 304 10^3/uL (130-400); Red Cell Dist. Width 12.3 % (11.5-14.5); White Blood Cell Count 12.7 10^3/uL (4.8-10.8)
[2024-12-05 04:59] LABS: INR 0.94; PT 12.8 Sec (11.4-14.6)
[2024-12-05 05:00] LABS: APTT 29.8 Sec (23.4-35.0)
[2024-12-05 05:15] LABS: ALT (SGPT) 23 U/L (0-50); AST (SGOT) 20 U/L (17-59); Albumin 4.4 g/dl (3.5-5.0); Alkaline Phosphatase 85 U/L (38-126); Blood Urea Nitrogen 12 mg/dl (9-20); Calcium 9.7 mg/dl (8.4-10.2); Carbon Dioxide 22 mmol/L (22-30); Chloride 106 mmol/L (98-107); Estimated Creatinine Clearance > 125 ml/min; Glucose 257 mg/dl (70-99); Lipase 33 U/L (23-300); Sodium 141 mmol/L (135-145); Total Bilirubin 0.6 mg/dl (0.2-1.3); eGFR > 60.00
[2024-12-05 05:21] LABS: B-Hydroxybutyrate 0.71 mmol/L (0.02-0.27); Potassium 4.1 mmol/L (3.5-5.1)
[2024-12-05] MEDS: KEPPRA 2000 MG IV ×2 (06:35→19:21)
[2024-12-05] MEDS: COMPAZINE 10 MG IV (07:52)
--- NOTE | 2024-12-05 09:26 | HPS.HSE ---
Family Physician
-
Family Physician: NOT KNOW UNKNOWN - PT DOES
Chief Complaint
-
Nausea and vomiting
History of Present Illness
Patient 29 years old male with history of diabetes mellitus type 1, seizures, came into the hospital with persistent nausea and vomiting and diarrhea. Patient has been feeling ill since 2 AM this morning he has been having persistent nausea and
vomiting and unable to keep anything down associated with watery diarrhea multiple times. No fevers or chills. No significant abdominal pain. Sick contact was his who was ill a few days ago with similar complaints and quickly got better.
Patient is concerned about his seizures medications since he was only able to take last night the last time. He felt he was going to have a seizure event this morning and got some benzodiazepine. He denies any chest pain or shortness of breath.
Denies eating anything out of the ordinary. Denies any recent travel. His labs show some anion gap and hyperglycemia but they were from early around 4:30 AM and I am seeing him after they requested my evaluation after 8 am today but no repeat labs
yet which I ordered stat. In the ER he was given IV Keppra (his regular home doses) and given 1 bolus of IV fluid and he was referred to hospitalist service for further evaluation.
Medical History
Past Medical History
Past Medical History: Reports IDDM and Seizures
Past Surgical History: Reports None
Social History
Tobacco: Non-smoker
Alcohol: Occasional
Drug: Marijuana
Personal:
Living: With Family
Employment: Employed
Family History
Family History: Not pertinent
Allergies / Home Medications
Allergies reflects when Allergies were last updated in [facility].
Home Medications with original date entered in [facility]
Allergy/Medication List:
Allergies
Allergy/AdvReac Type Severity Reaction Status Date / Time
No Known Allergies Allergy Verified 12/05/24 03:47
Home Medications
clobazam 20 mg tablet 20 mg PO HS Neurological Condition 08/07/24
lamotrigine 300 mg tablet,extended release 24 hr 300 mg PO BID Neurological Condition 08/07/24
levetiracetam 1,000 mg tablet 2,000 mg PO Q12H Neurological Condition 08/07/24
Patient's Own Insulin Pump 100 - 120 units SC .HUMALOG 12/05/24
diazepam 20 mg/2 spray (10 mg/0.1 mL x 2) nasal spray (Valtoco) 20 mg intranasal DAILYPRN PRN seizure 12/05/24
Review of Systems
-
A 12 point ROS was completed and negative except as noted: Yes
Physical Exam
Vital Signs
Vital Signs
Temp Pulse Resp BP Pulse Ox
98.0 F 48 15 142/96 96
12/05/24 03:47 12/05/24 09:00 12/05/24 08:45 12/05/24 09:00 12/05/24 09:00
Physical exam:
General: Acutely ill
HEENT: Normocephalic, Atraumatic and dry mucous Membranes
Respiratory: Clear to Auscultation; Negative Wheezes, Rales or Rhonchi
Cardiac: Regular Rhythm and S1/S2
GI: Soft, Nontender and Nondistended
Musculoskeletal: No Clubbing, No Cyanosis and No Edema
Neuro: Awake, Alert and Oriented
Psych: Calm
Physical Exam
General: Other
Laboratory Results
-
12/05/24 04:35
12/05/24 04:35
Laboratory Results
PT 12.8 Sec (11.4-14.6) 12/05/24 04:35
INR 0.94 12/05/24 04:35
APTT 29.8 Sec (23.4-35.0) 12/05/24 04:35
Total Bilirubin 0.6 mg/dl (0.2-1.3) 12/05/24 04:35
AST 20 U/L (17-59) 12/05/24 04:35
ALT 23 U/L (0-50) 12/05/24 04:35
Alkaline Phosphatase 85 U/L (38-126) 12/05/24 04:35
Lipase 33 U/L (23-300) 12/05/24 04:35
Impression/Plan
-
IMPRESSION:
Patient 29 years old male diabetes mellitus type 1 and seizures disorder who came into the hospital with persistent nausea vomiting and diarrhea. Likely acute viral gastroenteritis and will need to be in the hospital otherwise at increased risk of
morbidity and mortality.
PLAN:
Likely acute viral gastroenteritis:
IV fluids
Trial of clear liquid diet and if not we will keep him n.p.o. (also depending on what is going with next plan below).
Antiemetics as needed
Check norovirus
Check urine toxicology
Diabetes mellitus type 1 with hyperglycemia, concerns for DKA:
He does have borderline DKA but unclear since his last blood sugar was many hours ago and he did have mild anion gap and increased beta-hydroxybutyrate.
It appears he is still connected to his Humalog pump with basal rate of 1.75 unit/hr - he already bolused himself for the BG 257 reading we will recheck a stat BMP. If improved then we will continue with insulin sliding scale and will transition to
his insulin pump later, but if he is persistently in DKA then he will need an insulin drip and hold his own pump and more aggressive management and possible transfer to ICU (I gave a heads up to undercoater but might not need later so will see).
Keep him on cardiac monitoring for now as well.
Overall the metabolic derangement could be triggered by gastroenteritis or DKA itself could have been the culprit of his presentation--> likely the former but cannot rule out the possibility of the latter.
Diabetic ESTIMATOR PRINTING eval- discussed with team via tiger text.
Seizures:
IV Keppra until able to take medications oral consistently
Will resume his AED as soon as able to take oral
Benzodiazepines as needed
Seizures precaution
GERD:
IV PPI
DVT prophylaxis:
Lovenox SQ
CODE STATUS:
Full code
Time spent 75 min
[2024-12-05 09:28] LABS: Urine Albumin 1+ (Neg - Trace); Urine Bilirubin Negative (Negative); Urine Character Clear (Clear); Urine Color Yellow; Urine Glucose 4+ (Negative); Urine Ketone 3+ (Negative); Urine Leukocyte Negative (Negative); Urine Nitrite Negative (Negative); Urine Occult Blood Negative (Negative); Urine Urobilinogen Negative (Neg - 1+)
[2024-12-05] MEDS: NSS (PRESERVATIVE FREE) 10 ML IV (09:43)
[2024-12-05] MEDS: PROTONIX IV 40 MG IV (09:43)
--- NOTE | 2024-12-05 09:45 | EDRN ---
Pt gave himself a correct insulin dose for the elevated sugar. PHarmacy discussing the use of pump instead of the hospital -- administered 2.3 units self dose and basal 1.75 u/hr via pump
[2024-12-05 10:25] LABS: Urine Mucus Many
[2024-12-05 10:27] LABS: Urine Amorphous Seen; Urine Hyaline Cast 0-2 /LPF (0-2)
[2024-12-05 10:28] LABS: Urine Red Blood Cell 0-2 /HPF (0-2); Urine White Cell 0-2 /HPF (0-5)
[2024-12-05 10:47] LABS: Blood Urea Nitrogen 13 mg/dl (9-20); Calcium 9.3 mg/dl (8.4-10.2); Carbon Dioxide 28 mmol/L (22-30); Chloride 105 mmol/L (98-107); Estimated Creatinine Clearance > 125 ml/min; Glucose 256 mg/dl (70-99); Potassium 5.1 mmol/L (3.5-5.1); Sodium 140 mmol/L (135-145); eGFR > 60.00
[2024-12-05 11:43] LABS: Amphetamines Negative (Negative); Barbiturates Negative (Negative); Benzodiazepines Positive (Negative); Buprenorphine Negative (Negative); Cocaine Negative (Negative); Marijuana Positive (Negative); Methadone Negative (Negative); Methamphetamines Negative (Negative); Opiates Negative (Negative); Phencyclidine Negative (Negative); Tricyclic Antidepressants Negative (Negative)
[2024-12-05 12:08] LABS: Fentanyl, Urine Negative (Negative)
--- NOTE | 2024-12-05 12:11 | EDRN ---
Pt last bolus dose w insulin around 0830, 2.5 units. Notified pt to report to RN next time he bolus himself and how many units. Pt understands, call quintana in reach and resting comfortably in bed. Pt in no distress.
[2024-12-05 12:47] LABS: Glucose - Point of Care 214 mg/dl (70-99)
[2024-12-05] MEDS: PATIENT'S OWN INSULIN PUMP SC ×3 (12:55→17:45)
--- NOTE | 2024-12-05 14:17 | PN.DE.MGMTRT ---
Insulin Management
- -
12/05/2024 Diabetes Management Consult
Patient admitted with N/V/D since 2AM. PMH type 1 diabetes and epilepsy. Prior to admission patient was using medtronic pump with Quick set and Humalog insulin. Also using the DexCom G 6.
Patient is awake alert and oriented resting in bed, able to discuss diabetes care. at bedside.
Patient states he has had diabetes since age 7, had followed with endo @ [place] but has not seen doctor in 4 1/2 years. He has not had an A1C in 4 1/2 years.
States the DexCom averages his glucose and projects what the A1C would be so he doesn't need the test done.
Glucose has been > 200 since arrival, despite patient taking a correction. I inspected his infusion site, he has clear lipohypertrophy in both thighs where he exclusively places his infusion sets. He states he will not change to a new site. He
says thats just how it is because he has to use these site because the sensor is on his abdomen. Explained the sensor could be on the left side of the abdomen and the infusion set on the R side. He states that won't work because he goes from one
side of the abdomen to the other and it is not feasible. I explained that insulin absorption is greatly affected by the lipohypertrophy, he disagrees.
His glucose at the time of my visit was 230 by DexCom and 214 by POC test.
His last insulin bolus via pump was 8:30AM it is now 1pm, suggested a correction, he refuses.
Pump settings as follows:
Basal
12am 1.75
10am 1.9
total basal insulin for 24 hours 44.1
Patient does not use the Bolus wizard for calculations he states he is better at it than the pump. When questioned about a carb ratio he said it is about 1: 12 and correction factor is about 1:25.
Pump is running at this time. Patient is NPO.
Will follow.
Diabetes History
- -
Type of Diabetes: 1
Pre-Admission Diabetes Regimen
12/05/24 12/05/24
04:35 10:16
Creatinine 0.7 0.8
Lab Results
Hemoglobin A1c Cancelled 12/05/24 11:10
Insulin Pump Settings
IP Diabetes Regimen
12/05/24 12/05/24 12/05/24
04:35 10:16 12:44
Glucose 257 H 256 H
POC Glucose 214 H
Patient Education
[2024-12-05] MEDS: LOVENOX 40 MG SC (18:11)
--- NOTE | 2024-12-05 18:25 | PTCARENOTE ---
lovenox given. immediately after pt became flushed and mildly diaphoretic. pt vomited x1. pt 'feels better.' will monitor.
[2024-12-05] MEDS: TUMS CHEWABLE TABLET 200 MG PO (19:21)
[2024-12-05] MEDS: COMPAZINE 5 MG IV (19:21)
[2024-12-05] MEDS: NON-FORMULARY ITEM 300 MG PO (19:39)
[2024-12-05] MEDS: PATIENT'S OWN INSULIN PUMP 2.5 UNITS SC (21:43)
[2024-12-05 21:48] LABS: Glucose - Point of Care 222 mg/dl (70-99)
[2024-12-05] MEDS: ONFI 20 MG PO (22:02)
[2024-12-06] VITALS (7 sets, daily range): BP systolic 109–169; BP diastolic 68–104
[2024-12-06] MEDS: COMPAZINE 5 MG IV ×2 (00:17→23:48)
[2024-12-06] MEDS: NSS 1000 IV ×3 (01:23→18:30)
--- NOTE | 2024-12-06 03:02 | PTCARENOTE ---
Pt had in total of 4 episode of >200 ml vomit. Pt was given Zofran IV, and Compazine IV was order. Pt nausea did subside, but continues to vomit every couple hours. DIRECTOR ORGANIZATIONAL building construction contractor notified. Abd tender to palpitation, but soft. Pt has some wheezing but
no c/o SOB. call quintana within reach.
--- NOTE | 2024-12-06 03:16 | W.PN.UPDATE ---
Update Note
Progress Note Update
Reported by the nursing staff that the patient had 4 episodes of vomiting since the beginning of shift. Patient denies abdominal pain, chills, fever, or any other symptoms.
One assessment,
Patient was sleeping comfortably in bed, abdomen is soft, non tender, and + BS. Patient Funmilayo abdominal pain. Will continue with the current plan and change diet to NPO.
[2024-12-06] MEDS: ZOFRAN 4 MG IV ×2 (03:31→20:49)
[2024-12-06] MEDS: PATIENT'S OWN INSULIN PUMP SC ×3 (05:23→18:32)
[2024-12-06 05:28] LABS: Glucose - Point of Care 190 mg/dl (70-99)
[2024-12-06] MEDS: NSS (PRESERVATIVE FREE) 10 ML IV (07:21)
[2024-12-06] MEDS: KEPPRA 2000 MG IV ×2 (07:21→21:03)
[2024-12-06] MEDS: PROTONIX IV 40 MG IV (07:21)
[2024-12-06 07:43] LABS: Hemoglobin 14.3 g/dL (13.0-18.0); Mean Corpuscular Hgb 30.5 pg (27.0-31.0); Mean Corpuscular Volume 89.6 fL (80.0-94.0); Mean Platelet Volume 9.6 fL (7.4-10.4); Platelet Count 288 10^3/uL (130-400); Red Blood Cell Count 4.69 10^6/uL (4.70-6.10); Red Cell Dist. Width 12.4 % (11.5-14.5); White Blood Cell Count 10.7 10^3/uL (4.8-10.8)
[2024-12-06 08:06] LABS: Blood Urea Nitrogen 19 mg/dl (9-20); Calcium 9.2 mg/dl (8.4-10.2); Carbon Dioxide 29 mmol/L (22-30); Chloride 104 mmol/L (98-107); Estimated Creatinine Clearance > 125 ml/min; Glucose 239 mg/dl (70-99); Sodium 141 mmol/L (135-145); eGFR > 60.00
--- NOTE | 2024-12-06 08:25 | PN.DE.MGMTRT ---
Insulin Management
- -
12/06/2024 Diabetes Management Consult Follow up
Patient admitted with N/V/D since 2AM. PMH type 1 diabetes and epilepsy. Prior to admission patient was using medtronic pump with Quick set and Humalog insulin. Also using the DexCom G 6.
Patient is sleeping soundly, not disturbed.
12/05 Patient states he has had diabetes since age 7, had followed with endo @ [place] but has not seen doctor in 4 1/2 years. He has not had an A1C in 4 1/2 years. Current A1C 7.3%.
States the DexCom averages his glucose and projects what the A1C would be so he doesn't need the test done.
Glucose has been > 200 since arrival, despite patient taking a correction. I inspected his infusion site, he has clear lipohypertrophy in both thighs where he exclusively places his infusion sets. He states he will not change to a new site. He
says thats just how it is because he has to use these sites because the sensor is on his abdomen. Explained the sensor could be on the left side of the abdomen and the infusion set on the R side. He states that won't work because he goes from one
side of the abdomen to the other and it is not feasible. I explained that insulin absorption is greatly affected by the lipohypertrophy, he disagrees. He states he only changes his infusion site when he thinks it is necessary but usually not for 5
to 6 days.
Pump settings as follows:
Basal
12am 1.75
10am 1.9
total basal insulin for 24 hours 44.1
Patient does not use the Bolus wizard for calculations he states he is better at it than the pump. When questioned about a carb ratio he said it is about 1: 12 and correction factor is about 1:25.
12/06 Patient had several episodes of vomiting overnight with clear liquid diet. Glucose 12/05 @ HS 222, no correction taken. Fasting glucose this AM 190 POC @ 5:16, 239 venous @ 7am, no correction taken.
Pump is running at this time. Patient is NPO.
Will follow.
Discussed with nurse.
Diabetes History
- -
Type of Diabetes: 1
Pre-Admission Diabetes Regimen
12/05/24 12/06/24
10:16 07:18
Creatinine 0.8 0.7
Lab Results
Hemoglobin A1c Cancelled 12/05/24 11:10
Insulin Pump Settings
IP Diabetes Regimen
12/05/24 12/05/24 12/05/24
10:16 12:44 21:36
Glucose 256 H
POC Glucose 214 H 222 H
12/06/24 12/06/24
05:16 07:18
Glucose 239 H
POC Glucose 190 H
Patient Education
[2024-12-06 08:44] LABS: Glycohemoglobin (HgbA1c) 7.3 % (4.0-5.6)
[2024-12-06] MEDS: NON-FORMULARY ITEM 300 MG PO ×2 (08:46→21:10)
--- NOTE | 2024-12-06 08:48 | W.PN.HOSP.TC ---
Today's Communication/Plan
-
IVF. CLD.
Assessment / Plan
Assessment / Plan
Physical exam:
General: Well Developed, Well Nourished and No Apparent Distress
HEENT: Normocephalic, Atraumatic and Dry Mucous Membranes
Respiratory: Clear to Auscultation; Negative Wheezes, Rales or Rhonchi
Cardiac: Regular Rhythm and S1/S2
GI: Soft, Nontender and Nondistended
Musculoskeletal: No Clubbing, No Cyanosis and No Edema
Neuro: Awake, Alert and Oriented
Psych: Calm
A/P:
Likely acute viral gastroenteritis (other possibilities cannabinoid related hyperemesis versus cyclic vomiting versus diabetic gastroparesis):
IV fluids
Changed to n.p.o. overnight--> he wants to try clear liquid diet again
Urine toxicology positive for benzos and marijuana
Discussed with father at bedside
Diabetes mellitus type 1:
Mild DKA resolved yesterday
Continue home insulin pump
Diabetic GLASS CURVATURE GAUGER input appreciated
Seizures:
IV Keppra until able to take medications oral consistently
Will resume his AED as soon as able to take oral
Benzodiazepines as needed
Seizures precaution
GERD:
IV PPI
DVT prophylaxis:
Lovenox SQ
CODE STATUS:
Full code
Anticipated Discharge: Within 24 hours
Subjective/Interval History
-
Date of Service: December 06, 2024
Had recurrent nausea and vomiting overnight and made NPO. Feels slightly better today. Afebrile
Objective Data
-
Labs:
Laboratory Results
12/06/24
07:18
WBC 10.7
Hgb 14.3
Hct 42.0
Plt Count 288
Sodium 141
Potassium 4.0
Chloride 104
Carbon Dioxide 29
BUN 19
Creatinine 0.7
Glucose 239 H
Calcium 9.2
Vital Signs:
Vital Signs
Temp Pulse Resp BP Pulse Ox
98.1 F 62 20 124/69 95
12/06/24 07:00 12/06/24 07:00 12/06/24 07:00 12/06/24 07:00 12/06/24 07:00
I&O
12/05/24 12/06/24 12/07/24
06:59 06:59 06:59
Intake Total 1620 / 1620
Output Total 700 / 700
Balance 920 / 920
[2024-12-06 12:10] LABS: Glucose - Point of Care 115 mg/dl (70-99)
--- NOTE | 2024-12-06 14:34 | CM ---
CM reviewed medical records. Patient lives independently with . Patient does not have a history of VN or SNF. Patient currently has a Dexcom and Insulin Pump. Patient recently moved and need to follow up with finding a PCP.
PLAN: Home no needs.
--- NOTE | 2024-12-06 15:44 | PTCARENOTE ---
Pt notes that he is feeling better today. Tolerating clear liquid diet. No bowel movement today.
[2024-12-06 17:45] LABS: Glucose - Point of Care 114 mg/dl (70-99)
--- NOTE | 2024-12-06 18:08 | PTCARENOTE ---
pt received from 1 Acute. Pt walked from wheelchair to bed in 332. VSS. AAOx3. Home medications given to this RN by RN Pollo. Medications locked in Pt's home narcotic drawer. Pt denies pain or nausea. Pt has no complaints at this time. Will continue
to monitor.
[2024-12-06] MEDS: TIGAN 200 MG IM (19:40)
--- NOTE | 2024-12-06 20:36 | W.PN.UPDATE ---
Update Note
Progress Note Update
Asked by RN to see patient, father has questions regarding medication for nausea. Pt w/prolonged QT per telemetry strip?, EKG done to confirm. QTc interval (414) acceptable for patient to take Zofran. New IV placed by IV team as current site
occluding w/movement. Trialed one dose of Tigan, patient experienced flushing w/administration, discontinued medication. Added to allergies.
[2024-12-06] MEDS: ONFI 20 MG PO (21:13)
[2024-12-06 23:41] LABS: Glucose - Point of Care 205 mg/dl (70-99)
[2024-12-06] MEDS: PATIENT'S OWN INSULIN PUMP 1 UNITS SC (23:52)
[2024-12-07] MEDS: TUMS CHEWABLE TABLET 200 MG PO (00:18)
[2024-12-07] MEDS: NSS 1000 IV ×3 (01:42→18:06)
[2024-12-07] MEDS: ZOFRAN 4 MG IV ×2 (03:10→09:55)
[2024-12-07 03:50] VITALS: BP 149/84
[2024-12-07 05:59] LABS: Glucose - Point of Care 184 mg/dl (70-99)
[2024-12-07] MEDS: PATIENT'S OWN INSULIN PUMP SC (06:03)
[2024-12-07 07:35] VITALS: BP 149/85
--- NOTE | 2024-12-07 08:31 | W.PN.HOSP.TC ---
Today's Communication/Plan
-
CT scan of the abdomen pelvis
Assessment / Plan
Assessment / Plan
Physical exam:
General: Well Developed, Well Nourished and No Apparent Distress
HEENT: Normocephalic, Atraumatic and Dry Mucous Membranes
Respiratory: Clear to Auscultation; Negative Wheezes, Rales or Rhonchi
Cardiac: Regular Rhythm and S1/S2
GI: Soft, tender and Nondistended
Musculoskeletal: No Clubbing, No Cyanosis and No Edema
Neuro: Awake, Alert and Oriented
Psych: Calm
A/P:
Likely acute viral gastroenteritis (other possibilities cannabinoid related hyperemesis versus cyclic vomiting versus diabetic gastroparesis):
Given the persistence of his symptoms, I will order a CT scan of the abdomen and pelvis with oral and IV contrast today.
Recheck labs today
IV fluids
Keep clear liquid diet for now
Urine toxicology positive for benzos and marijuana
Discussed with father at bedside again today
Diabetes mellitus type 1:
Mild DKA resolved
Continue home insulin pump
Diabetic SAFETY FIRE BOSS input appreciated
Hemoglobin A1c 7.3
Seizures:
IV Keppra until able to take medications oral consistently
Will resume his AED as soon as able to take oral
Benzodiazepines as needed
Seizures precaution
GERD:
IV PPI
DVT prophylaxis:
Lovenox SQ
CODE STATUS:
Full code
Total time spent on today's encounter was 52 minutes which included time spent in counseling the patient/family regarding diagnosis and treatment plan as listed above, goals of care, and symptom management. Case was discussed with nursing staff,
specialists, and care coordinators/case management. All labs and imaging personally reviewed by me. Remainder the time spent in detailed review of previous records, lab data, imaging, and other medical provider documentation.
Anticipated Discharge: 24 - 48 hours
Subjective/Interval History
-
Date of Service: December 07, 2024
Patient still having nausea and abdominal discomfort. No bowel movement. Afebrile
Objective Data
-
Vital Signs:
Vital Signs
Temp Pulse Resp BP Pulse Ox
97.8 F 49 19 149/85 97
12/07/24 07:35 12/07/24 07:35 12/07/24 07:35 12/07/24 07:35 12/07/24 07:35
I&O
12/06/24 12/07/24 12/08/24
06:59 06:59 06:59
Intake Total 1620 / 1620 240 / 240
Output Total 700 / 700
Balance 920 / 920 240 / 240
[2024-12-07] MEDS: NON-FORMULARY ITEM 300 MG PO ×2 (09:18→20:49)
[2024-12-07] MEDS: NSS (PRESERVATIVE FREE) 10 ML IV (09:18)
[2024-12-07] MEDS: PROTONIX IV 40 MG IV (09:18)
[2024-12-07] MEDS: KEPPRA 2000 MG IV ×2 (10:17→20:49)
[2024-12-07] MEDS: FLUSH (NSS) 1 FLUSH IV (10:17)
[2024-12-07 10:22] LABS: % Basophils 0.2 % (0-2); % Eosinophils 0.1 % (0-6); % Immature Granulocytes 0.3 % (0-0.5); % Lymphocytes 20.1 % (20.5-51.1); % Monocytes 8.6 % (1.7-9.3); % Neutrophils 70.7 % (42.2-75.2); Absolute Monocytes 0.9 10^3/uL (0.1-0.6); Absolute Neutrophils 7.2 10^3/uL (1.4-6.5); Hematocrit 39.9 % (39.0-52.0); Hemoglobin 13.9 g/dL (13.0-18.0); Mean Corp Hgb Conc. 34.8 g/dL (33.0-37.0); Mean Corpuscular Hgb 30.5 pg (27.0-31.0); Mean Corpuscular Volume 87.7 fL (80.0-94.0); Mean Platelet Volume 9.7 fL (7.4-10.4); Nucleated Red Blood Cells % 0 % (-); Platelet Count 289 10^3/uL (130-400); Red Blood Cell Count 4.55 10^6/uL (4.70-6.10); Red Cell Dist. Width 12.1 % (11.5-14.5); White Blood Cell Count 10.1 10^3/uL (4.8-10.8)
[2024-12-07 10:29] LABS: Lactic Acid 1.1 mmol/L (0.7-2.0)
[2024-12-07] MEDS: OMNIPAQUE 50 ML PO (10:30)
[2024-12-07 10:47] LABS: ALT (SGPT) 21 U/L (0-50); AST (SGOT) 19 U/L (17-59); Albumin 4.1 g/dl (3.5-5.0); Alkaline Phosphatase 81 U/L (38-126); Blood Urea Nitrogen 10 mg/dl (9-20); Calcium 9.4 mg/dl (8.4-10.2); Carbon Dioxide 28 mmol/L (22-30); Chloride 101 mmol/L (98-107); Estimated Creatinine Clearance > 125 ml/min; Glucose 206 mg/dl (70-99); Lipase 253 U/L (23-300); Potassium 3.7 mmol/L (3.5-5.1); Sodium 138 mmol/L (135-145); Total Bilirubin 0.9 mg/dl (0.2-1.3); Total Protein 6.4 g/dl (6.3-8.2); eGFR > 60.00
--- NOTE | 2024-12-07 10:49 | CM ---
Reviewed the chart notes and spoke with the patient and his father at the bedside. Patient's currently on clear liquid diet. CM continues to be available to patient/family and is monitoring medical plan for needs at discharge.
Plan: Discharge to home when medically stable. No needs anticipated at this time.
[2024-12-07 10:56] VITALS: BP 138/86
--- NOTE | 2024-12-07 11:22 | PN.DE.MGMTRT ---
Insulin Management
- -
12/07/2024 Diabetes Management Consult Follow up
Patient admitted with N/V/D since 2AM. PMH type 1 diabetes and epilepsy. Prior to admission patient was using medtronic pump with Quick set and Humalog insulin. Also using the DexCom G 6.
Patient is sleeping soundly, not disturbed.
12/05 Patient states he has had diabetes since age 7, had followed with endo @ [place] but has not seen doctor in 4 1/2 years. He has not had an A1C in 4 1/2 years. Current A1C 7.3%.
States the DexCom averages his glucose and projects what the A1C would be so he doesn't need the test done.
Glucose has been > 200 since arrival, despite patient taking a correction. I inspected his infusion site, he has clear lipohypertrophy in both thighs where he exclusively places his infusion sets. He states he will not change to a new site. He
says thats just how it is because he has to use these sites because the sensor is on his abdomen. Explained the sensor could be on the left side of the abdomen and the infusion set on the R side. He states that won't work because he goes from one
side of the abdomen to the other and it is not feasible. I explained that insulin absorption is greatly affected by the lipohypertrophy, he disagrees. He states he only changes his infusion site when he thinks it is necessary but usually not for 5
to 6 days.
Pump settings as follows:
Basal
12am 1.75
10am 1.9
total basal insulin for 24 hours 44.1
Patient does not use the Bolus wizard for calculations he states he is better at it than the pump. When questioned about a carb ratio he said it is about 1: 12 and correction factor is about 1:25.
12/06 Patient had several episodes of vomiting overnight with clear liquid diet. Glucose 12/05 @ HS 222, no correction taken. Fasting glucose this AM 190 POC @ 5:16, 239 venous @ 7am, no correction taken.
12/07 Glucose range yesterday 114 to 205. Will make no change to regimen.
Pump is running at this time. Patient for CT scan abdomen
Will follow.
Discussed with nurse.
Diabetes History
- -
Type of Diabetes: 1
Pre-Admission Diabetes Regimen
12/07/24
10:08
Creatinine 0.6 L
Lab Results
Hemoglobin A1c Cancelled 12/05/24 11:10
Insulin Pump Settings
IP Diabetes Regimen
12/06/24 12/06/24 12/06/24
11:58 17:33 23:40
Glucose
POC Glucose 115 H 114 H 205 H
12/07/24 12/07/24
05:58 10:08
Glucose 206 H
POC Glucose 184 H
Patient Education
[2024-12-07 11:59] LABS: Glucose - Point of Care 191 mg/dl (70-99)
[2024-12-07] MEDS: PATIENT'S OWN INSULIN PUMP 1 UNITS SC (12:03)
[2024-12-07 15:31] VITALS: BP 134/82
[2024-12-07 16:51] LABS: Glucose - Point of Care 188 mg/dl (70-99)
[2024-12-07 19:38] VITALS: BP 134/83
[2024-12-07] MEDS: ONFI 20 MG PO (20:51)
[2024-12-07 21:26] LABS: Glucose - Point of Care 151 mg/dl (70-99)
[2024-12-07 23:18] VITALS: BP 160/93
--- NOTE | 2024-12-08 00:15 | PTCARENOTE ---
Pt called nursing staff to report an episode of emesis. Pt states episode occurred after drinking a large amount of water. Pt reports still feeling nauseous. IV Zofran given.
[2024-12-08] MEDS: ZOFRAN 4 MG IV (00:16)
--- NOTE | 2024-12-08 01:45 | PTCARENOTE ---
Pt called nursing staff to report another episode of emesis that woke him from his sleep. IV Compazine given, encouraged pt to limit intake to small sips.
[2024-12-08] MEDS: COMPAZINE 10 MG IV (01:47)
[2024-12-08] MEDS: NSS 1000 IV ×2 (01:47→08:59)
[2024-12-08] MEDS: REGLAN 10 MG IV (05:25)
[2024-12-08 06:38] LABS: % Basophils 0.3 % (0-2); % Eosinophils 0.1 % (0-6); % Immature Granulocytes 0.3 % (0-0.5); % Lymphocytes 17.2 % (20.5-51.1); % Monocytes 6.7 % (1.7-9.3); % Neutrophils 75.4 % (42.2-75.2); Absolute Lymphocytes 1.8 10^3/uL (1.2-3.4); Absolute Monocytes 0.7 10^3/uL (0.1-0.6); Absolute Neutrophils 7.8 10^3/uL (1.4-6.5); Hematocrit 44.9 % (39.0-52.0); Hemoglobin 15.3 g/dL (13.0-18.0); Mean Corp Hgb Conc. 34.1 g/dL (33.0-37.0); Mean Corpuscular Hgb 30.5 pg (27.0-31.0); Mean Corpuscular Volume 89.4 fL (80.0-94.0); Mean Platelet Volume 9.8 fL (7.4-10.4); Nucleated Red Blood Cells % 0 % (-); Platelet Count 265 10^3/uL (130-400); Red Blood Cell Count 5.02 10^6/uL (4.70-6.10); Red Cell Dist. Width 12.1 % (11.5-14.5); White Blood Cell Count 10.3 10^3/uL (4.8-10.8)
[2024-12-08 06:58] LABS: Blood Urea Nitrogen 7 mg/dl (9-20); Calcium 9.3 mg/dl (8.4-10.2); Carbon Dioxide 27 mmol/L (22-30); Chloride 100 mmol/L (98-107); Estimated Creatinine Clearance > 125 ml/min; Glucose 211 mg/dl (70-99); Potassium 3.9 mmol/L (3.5-5.1); Sodium 139 mmol/L (135-145); eGFR > 60.00
[2024-12-08 07:00] VITALS: BP 130/80
--- NOTE | 2024-12-08 07:23 | W.PN.HOSP.TC ---
Today's Communication/Plan
-
Discharge planning today
Assessment / Plan
Assessment / Plan
Physical exam:
General: Well Developed, Well Nourished and No Apparent Distress
HEENT: Normocephalic, Atraumatic and Moist Mucous Membranes
Respiratory: Clear to Auscultation; Negative Wheezes, Rales or Rhonchi
Cardiac: Regular Rhythm and S1/S2
GI: Soft, Nontender and Nondistended
Musculoskeletal: No Clubbing, No Cyanosis and No Edema
Neuro: Awake, Alert and Oriented
Psych: Calm
A/P:
Likely acute viral gastroenteritis (other possibilities cannabinoid related hyperemesis versus cyclic vomiting versus diabetic gastroparesis):
CT scan unremarkable and repeat labs
Advanced diet to regular diet since yesterday
Urine toxicology positive for benzos and marijuana
Discussed with father at bedside prior. Discussed with at bedside today
Plan to discharge today
Diabetes mellitus type 1:
Mild DKA resolved
Continue home insulin pump
Diabetic HAND WEAVER input appreciated
Hemoglobin A1c 7.3
Seizures:
IV Keppra until able to take medications oral consistently
Will resume his AED as soon as able to take oral
Benzodiazepines as needed
Seizures precaution
GERD:
IV PPI
DVT prophylaxis:
Lovenox SQ
CODE STATUS:
Full code
Anticipated Discharge: Today
Subjective/Interval History
-
Date of Service: December 08, 2024
Patient feels better overall. He has nausea only in the evening but has been able to tolerate oral solid diet without any problems. Afebrile
Objective Data
-
Labs:
Laboratory Results
12/08/24
05:30
WBC 10.3
Hgb 15.3
Hct 44.9
Plt Count 265
Sodium 139
Potassium 3.9
Chloride 100
Carbon Dioxide 27
BUN 7 L
Creatinine 0.6 L
Glucose 211 H
Calcium 9.3
Vital Signs:
Vital Signs
Temp Pulse Resp BP Pulse Ox
97.9 F 61 20 160/93 100
12/08/24 05:04 12/08/24 05:04 12/08/24 05:04 12/07/24 23:18 12/08/24 05:04
I&O
12/07/24 12/08/24 12/09/24
06:59 06:59 06:59
Intake Total 240 / 240 2370 / 2370
Balance 240 / 240 2370 / 2370
[2024-12-08 07:56] LABS: Glucose - Point of Care 180 mg/dl (70-99)
[2024-12-08] MEDS: PROTONIX IV 40 MG IV (08:52)
[2024-12-08] MEDS: KEPPRA 2000 MG IV (08:53)
[2024-12-08] MEDS: NON-FORMULARY ITEM 300 MG PO (08:54)
[2024-12-08] MEDS: NSS (PRESERVATIVE FREE) 10 ML IV (08:54)
[2024-12-08 11:00] VITALS: BP 137/90
--- NOTE | 2024-12-08 12:07 | W.DCSUMMARY ---
Discharge Summary
Discharge Data
Date of Admission: 12/06/24
Date of Discharge: 12/08/24
-
Pending Results: No
Hospital Course
Patient 29 years old male diabetes mellitus type 1 presented to the hospital with persistent nausea vomiting diarrhea and abdominal pain. Patient was noted to be in mild DKA but resolved in a matter of a few hours of the day of admission. He was
given aggressive IV fluid hydration and supportive care with antiemetics. Patient never had more diarrhea during the hospital stay. He did have persisting abdominal pain along with nausea and vomiting. He had a CT scan of the abdomen pelvis and
no acute intra-abdominal pathology found. He also had normal LFTs and lipase. Patient was able to improve with supportive measures. It could have been a prolonged course of viral gastroenteritis but the possibility of cyclic vomiting marijuana
use and gastroparesis was discussed with patient and merits further evaluation as outpatient. Otherwise, patient able to ambulate and eat without any problems and eager to go home today so he will be discharged in stable condition today.
Discharge Plan
-
Patient Disposition: Home (Routine Discharge)
Discharge Diagnosis/Procedures: Acute gastroenteritis. Diabetes mellitus type 1.
Diet: Diabetic, Carb Controlled
Activity: As tolerated
Blood Work: Please PCP to order CBC, BMP
Others Tests: Consider nuclear gastric emptying study as outpatient.
Referrals:
Primary care, afterwards [Other] - in less than 1 week
Prescriptions:
New
ondansetron 4 mg Tablet,Disintegrating
4 mg PO Q8HPRN PRN (Reason: nausea and or vomiting) Qty: 10 0RF
Continued
levetiracetam 1,000 mg tablet
2,000 mg PO Q12H
lamotrigine 300 mg tablet extended release 24hr
300 mg PO BID
clobazam 20 mg tablet
20 mg PO HS
Valtoco 20 mg/2 spray (10mg/0.1mL x2) [place],Non-Aerosol
20 mg INTRANASAL DAILYPRN PRN (Reason: seizure)
Patient's Own Insulin Pump
100 - 120 units SC .HUMALOG
Discharge Orders:
Discharge Patient (As Directed); Ordered 12/08/24
Ordered By: Haja Arguello
Discharge Date and Time
Print Language: MOROCCAN
[2024-12-08 12:16] LABS: Glucose - Point of Care 152 mg/dl (70-99)
== END 2024-12-08 14:50 | disposition home or self-care (01) | DRG 391 ==
LOC: 3 WEST ACU 12:02
PROVIDERS: ADMITTING PHYSICIAN Hospitalist; EMERGENCY PHYSICIAN Student in an Organized Health Care Education/Training Program
DX: A08.4 Viral intestinal infection, unspecified (principal); E10.10 Type 1 diabetes mellitus with ketoacidosis without coma; G40.909 Epilepsy, unspecified, not intractable, without status epilepticus; K21.9 Gastro-esophageal reflux disease without esophagitis; E10.43 Type 1 diabetes mellitus with diabetic autonomic (poly)neuropathy; K31.84 Gastroparesis; F12.920 Cannabis use, unspecified with intoxication, uncomplicated; Z96.41 Presence of insulin pump (external) (internal); Z79.899 Other long term (current) drug therapy
CPT/HCPCS: 74177; 80048; 80053; 80306; 80307; 81003; 81015; 82010; 82962; 83036; 83605; 83690; 85025; 85027; 85610; 85730; 93005; 96361; 96374; 96375; 96376; 99284; Q9967